=== PATIENT | male | born 1935 | race Hispanic/Latino ===

== ENCOUNTER → 2019-02-24 | Day surgery (SDC) | payer MEDICARE ==
[~2019-02-24] MED LIST: ALBUTEROL0.63 MG/3; ANORO INH; ARICEPT5 MG PO; ATORVASTATIN CA20 MG PO; BUSPIRONE HCL5 MG PO; CEFTRIAXONE SOD 1 GM/NS 50 ML 50 ML IV ONE; DESFLURANE 240 ML BTL INH ONE; DEXAMETHASONE SOD PHOS INJ 4 MG/ML VIAL ONE; FENTANYL CITRATE/PF 100MCG/2 ML INJ ONE; FERROUS SULFAT325 MG; FLECTOR1 EACH; FLOMAX0.4 MG PO; IOPAMIDOL 610MG/1ML 300 MG/ML VIAL IV ONE; JANUMET XR 1001 EACH; LEVOTHYROXINE88 MCG PO; LIDOCAINE HCL 2% LOCAL INJ 5 ML SDV VIAL INJ ONE; LOSARTAN POTAS100 MG PO; MISOPROSTOL100 MCG PO; MONTELUKAST SOD10 MG PO; NAMENDA10 MG; OMEGA-31000 MG; PROPOFOL IV EMULSION 10 MG/ML 20 ML VIAL ONE; VITAMIN C500 M4; VITAMIN D2400 UNIT; ZETIA10 MG PO
[2019-02-24 06:51] LABS: BASOPHILS # (AUTO) 0.1 (0.0-0.1); BASOPHILS % 0.6 % (0.0-1.0); EOSINOPHILS # (AUTO) 0.2 (0.0-0.4); EOSINOPHILS % 2.3 % (0.0-6.0); HEMATOCRIT 43.6 % (38.2-49.6); HEMOGLOBIN 14.9 g/dL (14.0-18.0); LYMPHOCYTES # (AUTO) 1.2 (1.0-3.2); LYMPHOCYTES % 15.4 % (18.0-39.1); MEAN CORPUSCULAR HEMOGLOBIN 29.9 pg (28-32); MEAN CORPUSCULAR HGB CONC 34.2 g/dL (31-35); MEAN CORPUSCULAR VOLUME 87.4 fL (81-99); MONOCYTES % 12.5 % (4.4-11.3); NEUTROPHILS # (AUTO) 5.5 (2.1-6.9); NEUTROPHILS % 68.6 % (38.7-80.0); PLATELET COUNT 167 x10e3/uL (140-360); RED BLOOD COUNT 4.99 x10e6/uL (4.3-5.7); RED CELL DISTRIBUTION WIDTH 14.4 % (11.7-14.4)
[2019-02-24 07:04] LABS: ALANINE AMINOTRANSFERASE 15 IU/L (0-55); ALBUMIN 3.5 g/dL (3.5-5.0); ALKALINE PHOSPHATASE 74 IU/L (40-150); ANION GAP 12.2 mmol/L (8-16); BLOOD UREA NITROGEN 12 mg/dL (7-26); BUN/CREATININE RATIO 11 (6-25); CARBON DIOXIDE 24 mmol/L (22-29); CHLORIDE 102 mmol/L (98-107); CREATININE, SERUM 1.14 mg/dL (0.72-1.25); EST GLOMERULAR FILTRATION RATE > 60 ML/MIN (60-); GLUCOSE 90 mg/dL (74-118); POTASSIUM 4.2 mmol/L (3.5-5.1); SODIUM 134 mmol/L (136-145)
--- NOTE | 2019-02-24 07:16 | NUR ---
SPIRITUAL CARE - Pre-Surgery Assessment: Pt in bed. Pt's son at bedside. Pt reported supportive attention from family and friends. Intervention: I provided pastoral presence, hospitality, and sympathetic listening. I acquainted pt with availability of separations scientist while hospitalized. Outcome: Pt expressed appreciation for visit. No need for follow up indicated at this time. KAMRAN [facility] Department O: [phone] Pager: [phone] ([phone] number calling from)
--- NOTE | 2019-02-24 08:19 | Diagnostic Imaging Report ---
EXAMINATION: CHEST 2 VIEWS INDICATION: Pre-op. COMPARISON: None FINDINGS: TUBES and LINES: None. LUNGS: Mild bilateral interstitial opacities and central vascular congestion. There is opacity in the medial right lower lung, likely reflecting pulmonary artery branch. Indeterminate opacity in the left midlung peripherally. PLEURA: No pleural effusion or pneumothorax. HEART AND MEDIASTINUM: The cardiac silhouette is unremarkable. There is enlargement of bilateral main pulmonary arteries. Atherosclerotic calcification of the aortic arch. BONES AND SOFT TISSUES: No acute osseous abnormality. UPPER ABDOMEN: No free air under the diaphragm. IMPRESSION: Indeterminate opacity in the left midlung. Chest CT is suggested for further evaluation. Enlarged bilateral main pulmonary arteries, suggestive of pulmonary arterial hypertension. Signed by: Dr. Katie Summers MD on 02/24/2019 8:15 AM
[2019-02-24 09:45] VITALS: BP 153/81
--- NOTE | 2019-02-24 12:45 | Operative Report ---
DATE OF PROCEDURE: 02/24/2019 SURGEON: Senthil Domingo MD PREOPERATIVE DIAGNOSIS: Urethral stricture disease. POSTOPERATIVE DIAGNOSIS: Urethral stricture disease. PROCEDURES: 1. Retrograde urethrogram. 2. Cystogram 3v. 3. Cystourethroscopy with calibration and dilation of stricture. ANESTHESIA: General. ESTIMATED BLOOD LOSS: Minimal. COMPLICATIONS: None. INDICATION FOR PROCEDURE: Mr. Arango is a very pleasant 83-year-old male with a history of difficulty urinating, hematuria, found to have a urethral stricture. He and I had a long discussion about alternatives, risks and benefits and would like to proceed with urethral dilation. PROCEDURE IN DETAIL: After informed consent was obtained, the patient was taken to the operative suite, placed supine on the operating table, underwent general anesthesia by the Anesthesia service. He was placed in the dorsal lithotomy position, sterilely prepped and draped in a standard fashion for cystoscopy. An attempt was made to insert a 21-Palauan cystoscope, that has failed. The ureter was calibrated with 14- Palauan distally, dilated with 22-Palauan with a scope. A 17-Palauan cystoscope was introduced. There was a pinpoint and retrograde urethrogram performed as a pinpoint bulbar urethral stricture, this was dilated filiform dilator follower. The scope was introduced. There was bullous edema of the trigone and some calcifications on the right bladder neck. Under direct vision, the follower was introduced into the bladder. Catheter was introduced over the follower, bladder. Cystogram was performed to confirm position of the bladder and was drained easily with catheter. The patient was awakened from anesthesia and transported to recovery room in excellent condition with no untoward effects noted. Supervision of fluoroscopy, retrograde urethrogram, cystogram : I was present for the entire procedure and I supervised fluoroscopy as no radiologist was present. Retrograde urethrogram was performed revealing distal and proximal urethral strictures, dense discrete severe trabeculation, multiple saccules and diverticula of the bladder. Howell catheter in adequate positioned. MD MEIR Jacques/MODL /[id number] [facility] HOSPITALPaul
== END | disposition home or self-care (01) ==
LOC: OR 05:38
PROVIDERS: ATTEND Urology
DX: N35.912 Unspecified bulbous urethral stricture, male (principal); N32.89 Other specified disorders of bladder; N32.3 Diverticulum of bladder; J44.9 Chronic obstructive pulmonary disease, unspecified; I25.10 Atherosclerotic heart disease of native coronary artery without angina pectoris; E03.9 Hypothyroidism, unspecified; F03.90 Unspecified dementia, unspecified severity, without behavioral disturbance, psychotic disturbance, mood disturbance, and anxiety; Z99.81 Dependence on supplemental oxygen; Z87.891 Personal history of nicotine dependence
CPT/HCPCS: 36415; 52281; 71046; 74450; 80053; 82948; 85025; 93005; J0696; J1100; J2001; J2704; Q9967